=== PATIENT | female | born 1950 | race Two or more races ===

== ENCOUNTER 2025-06-15 15:15 | Emergency (ER) | payer OTHER ==
[~2025-06-15] VITALS: Ht 165.1 cm; Wt 75.3 kg
[2025-06-15] MEDS ORDERED: ADULT LOW DOSE81 M1 (15:31)
[2025-06-15] MEDS ORDERED: ISOSORBIDE DINI30 MG (15:31)
[2025-06-15] MEDS ORDERED: PLAVIX75 MG (15:31)
[2025-06-15] MEDS ORDERED: SYNTHROID112 MCG (15:35)
[2025-06-15] MEDS ORDERED: LEXAPRO20 MG (15:35)
[2025-06-15] MEDS ORDERED: CARVEDILOL (15:35)
[2025-06-15] MEDS ORDERED: ISOSORBIDE MONO60 MG (15:35)
[2025-06-15] MEDS ORDERED: PREVACID15 M1 (15:36)
[2025-06-15] MEDS ORDERED: HYDRALAZINE HCL50 MG (15:36)
[2025-06-15] MEDS ORDERED: DIOVAN320 MG (15:36)
[2025-06-15] MEDS ORDERED: REPATHA SU140 MG/1 M (15:36)
[2025-06-15] MEDS ORDERED: VITAMIN C500 M6 (15:37)
[2025-06-15] MEDS ORDERED: VITAMIN D325 MCG (15:37)
[2025-06-15] MEDS ORDERED: HYDROXYZINE (15:37)
[2025-06-15] MEDS ORDERED: ARICEPT5 MG (15:38)
[2025-06-15] MEDS ORDERED: VITAMIN E400 UNI7 (15:38)
[2025-06-15] MEDS ORDERED: MK-7180 MCG (15:38)
[2025-06-15] MEDS ORDERED: KETOROLAC TROMETHAMINE 30 MG VIAL IM STA (16:48)
[2025-06-15] MEDS ORDERED: KETOROLAC TROMETHAMINE 30 MG VIAL ONE (16:49)
[2025-06-15 19:39] LABS: BASO % 0.3 % (0.1-1.2); EOS # 0.11 (0.04-0.54); EOS % 1.1 % (0.7-7.0); LYMPH # 1.47 (1.18-3.74); LYMPH % 15.3 % (19.3-53.1); MEAN PLATELET VOLUME 10.50 fl (9.4-12.4); MONO # 0.32 (0.24-0.82); MONO % 3.3 % (4.7-12.5); NEUT # 7.66 (1.56-6.13); NEUT % 79.7 % (34.0-71.1); RED CELL DISTRIBUTION WIDTH 15.9 % (11.6-14.4)
[2025-06-15 20:01] LABS: INR 1.04
[2025-06-15 20:08] LABS: ALT/SGPT 24.0 U/L (12-78); AST/SGOT 23.0 U/L (15-37); BILIRUBIN TOTAL 1.34 mg/dL (0.3-1.2); BUN CREA RATIO 26.0 (7.0-25.0); CREATININE SERUM 0.76 mg/dL (0.55-1.02); GFR 74.19; GLOBULINA 4.1 G/DL (2.4-3.5); GLUCOSE FASTING 176.0 mg/dL (65-100); OSMOLALITY SERUM 281.0 MOSM/KG (275-295)
== END 2025-06-15 18:36 | disposition designated cancer center or children's hospital (05) ==
LOC: ER 15:16
PROVIDERS: General Practice
DX: I60.8 Other nontraumatic subarachnoid hemorrhage (principal); S09.8XXA Other specified injuries of head, initial encounter; W01.0XXA Fall on same level from slipping, tripping and stumbling without subsequent striking against object, initial encounter; Y93.89 Activity, other specified; Y92.89 Other specified places as the place of occurrence of the external cause; S89.81XA Other specified injuries of right lower leg, initial encounter; Z88.8 Allergy status to other drugs, medicaments and biological substances